=== PATIENT | female | born 1980 | race Caucasian/White ===

== ENCOUNTER 2019-01-23 18:44 | Emergency (ER) | payer MEDICAID ==
[~2019-01-23] VITALS: Ht 167.6 cm; Wt 75.0 kg
[2019-01-23 18:57] VITALS: BP 144/84; Ht 167.6 cm; Wt 75.0 kg
[2019-01-23] MEDS ORDERED: OXYCONTIN10 MG PO (18:58)
[2019-01-23] MEDS ORDERED: SULFAMETHOXAZOL1 TA2 PO (18:59)
[2019-01-23 20:18] LABS: BASOPHILS 0.1 % (0-2); EOSINOPHILS 1.6 % (0-7); HEMOGLOBIN 11.3 g/dL (12-16); IMMATURE GRANULOCYTES 0.3 % (0-5); LYMPHOCYTES 20.7 % (15-50); MCH 28.8 pg (26.0-34.0); MCHC 33.2 g/dL (31.0-37.0); MCV 86.5 fL (80.0-100.0); MEAN PLATELET VOLUME 8.8 fL (7.4-10.4); MONOCYTES 5.5 % (2-11); NEUTROPHILS 71.8 % (40-80); PLATELET COUNT 210 10x3/uL (130-400); RBC 3.93 10x6/uL (4.00-5.40); RDW 17.7 % (11.5-14.5); WBC 13.4 10x3/uL (4.8-10.8)
[2019-01-23 20:34] LABS: APPEARANCE HAZY (CLEAR); BILIRUBIN NEGATIVE (NEGATIVE); COLOR YELLOW (YELLOW); GLUCOSE NEGATIVE (NEGATIVE); KETONE NEGATIVE (NEGATIVE); NITRITE NEGATIVE (NEGATIVE); PROTEIN 2+ mg/dL (NEGATIVE); SPECIFIC GRAVITY 1.015 (1.005-1.020); UROBILINOGEN NORMAL (NORMAL)
[2019-01-23 20:35] LABS: BACTERIA MODERATE /hpf (NONE SEEN); EPITHELIAL CELLS OCC /hpf (0-5); RED CELLS - URINE 25-50 /hpf (0-5); WHITE CELLS - URINE 0-5 /hpf (0-5)
[2019-01-23 20:40] LABS: ALBUMIN 3.1 g/dL (3.4-5.0); ALKALINE PHOSPHATASE 117 U/L (46-116); ALT (SGPT) 51 U/L (10-68); BILIRUBIN - TOTAL 0.21 mg/dL (0.2-1.3); CALC OSMOLALITY 265 mosm/kg (275-300); CALCIUM 8.3 mg/dL (8.5-10.1); CARBON DIOXIDE 30.4 mmol/L (21.0-32.0); CHLORIDE - SERUM 102 mmol/L (98-107); GLUCOSE 105 mg/dL (74-106); PROTEIN - SERUM 6.8 g/dL (6.4-8.2); SODIUM 132 mmol/L (136-145); UREA NITROGEN 15 mg/dL (7-18); eGFR NON AFRICAN AMERICAN 65 mL/min (90-120)
[2019-01-23 20:41] LABS: AMYLASE - SERUM 80 U/L (25-115); LIPASE 170 U/L (73-393)
[2019-01-23 20:43] LABS: TROPONIN-I < 0.017 ng/mL (0.000-0.060)
[2019-01-23 20:53] LABS: HCG URINE NEGATIVE (NEGATIVE)
== END 2019-01-23 21:12 | disposition home or self-care (01) ==
LOC: D.ER 18:44
PROVIDERS: Family Medicine
DX: N13.9 Obstructive and reflux uropathy, unspecified (principal); C53.9 Malignant neoplasm of cervix uteri, unspecified; G89.18 Other acute postprocedural pain; F17.210 Nicotine dependence, cigarettes, uncomplicated